=== PATIENT | female | born 1945 | race Caucasian/White ===

== ENCOUNTER 2018-12-19 10:54 | Outpatient (REF) | payer MEDICARE, MEDICAID, SELFPAY | END 2018-12-19 11:14 | LOC: NCHCN 10:54 | PROVIDERS: PCP Nurse Practitioner Family; Visit Provider Nurse Practitioner Family | DX: I10 Essential (primary) hypertension (principal); R25.1 Tremor, unspecified | CPT/HCPCS: 82043; 82570 ==

== ENCOUNTER 2020-06-12 02:28 | Outpatient (CLI) | payer MEDICARE, MEDICAID, SELFPAY ==
[2020-06-12] MEDS: Normal Saline Flush 10 ML SYR IVP (09:04)
[2020-06-12] MEDS: Normal Saline 500 ML 30 ML IV (09:04)
[2020-06-12 09:07] VITALS: BP 117/61; BP 128/63; PULSE 73; PULSE 75; RESP 16; RESP 18; TEMP 36.5; TEMP 37.2; O2SAT 94; O2SAT 95
[2020-06-12 09:30] VITALS: BP 126/62; PULSE 74; RESP 20; TEMP 36.7; O2SAT 94
[2020-06-12 10:00] VITALS: BP 122/64; PULSE 78; RESP 20; TEMP 36.7; O2SAT 94
[2020-06-12 10:30] VITALS: BP 120/66; PULSE 80; RESP 20; TEMP 36.8; O2SAT 95
== END 2020-06-12 02:29 | disposition home or self-care (01) ==
PROVIDERS: PCP Nurse Practitioner Family; Visit Provider Family Medicine
DX: U07.1 COVID-19 (principal)
CPT/HCPCS: 96365

== ENCOUNTER 2021-03-04 15:27 | Outpatient (REF) | payer MEDICARE, MEDICAID, SELFPAY ==
[2021-03-04 16:03] LABS: Abs Immature Grans 0.02 10^3/uL (0.0-0.06); Absolute Basophil Count 0.04 10^3/uL (0.0-0.2); Absolute Eosinophil Count 0.25 10^3/uL (0.0-0.7); Absolute Lymphocyte Count 0.75 10^3/uL (1.2-3.4); Absolute Monocyte Count 1.02 10^3/uL (0.1-0.8); Absolute Neutrophil Count 3.67 10^3/uL (1.2-6.7); Basophils % 0.7; Eosinophils % 4.3; HCT 28.7 % (36.0-46.0); HGB 8.6 g/dL (11.2-15.7); Immature Grans % 0.3; MCH 27.8 pg (27.0-33.0); MCV 92.9 fL (80-95); MPV 10.5 fL (8.0-11.0); Monocytes % 17.7; Nucleated RBC 0 %; Platelet Count 500 10^3/uL (130-400); RBC 3.09 10^6/uL (3.93-5.22); RDW-SD 54.8 fL; WBC 5.75 10^3/uL (4.4-10.8)
[2021-03-04 17:30] LABS: BUN 45 mg/dL (7-18); Calcium 8.9 mg/dL (8.5-10.1); Estimated GFR 7.13 (mL/min/1.73m2); Glucose 78 mg/dL (74-106); PHOSPHORUS 5.1 mg/dL (2.6-4.7)
[2021-03-04 17:32] LABS: CREATININE 5.8 mg/dL (0.55-1.02)
[2021-03-04 23:52] LABS: ALT 10 U/L (14-59); AST 13 U/L (15-37); Albumin 2.2 g/dL (3.4-5.0); Alkaline Phosphatase 93 U/L (46-116); Anion Gap 7.4 mmol/L (3-11); Bilirubin, Total 0.2 mg/dL (0.2-1.0); CO2 24.6 mmol/L (21.0-32.0); Chloride 102 mmol/L (98-107); Magnesium 1.5 mg/dL (1.8-2.4); Sodium 134 mmol/L (136-145); TSH (W/Ref FT4) 3.72 uIU/mL (0.36-3.74); Total Protein 4.6 g/dL (6.4-8.2)
[2021-03-05 01:48] LABS: COVID-19 RT-PCR UVMMC Result Negative (Negative)
== END 2021-03-04 15:28 | disposition home or self-care (01) ==
LOC: NCHCN 15:27
PROVIDERS: PCP Nurse Practitioner Family; Visit Provider Nurse Practitioner Family
DX: E11.9 Type 2 diabetes mellitus without complications (principal); I10 Essential (primary) hypertension; D50.9 Iron deficiency anemia, unspecified; R60.0 Localized edema; E83.39 Other disorders of phosphorus metabolism; E05.00 Thyrotoxicosis with diffuse goiter without thyrotoxic crisis or storm; N18.4 Chronic kidney disease, stage 4 (severe); J06.9 Acute upper respiratory infection, unspecified; Z20.822 Contact with and (suspected) exposure to COVID-19
CPT/HCPCS: 80053; U0003; U0005; 83735; 84100; 84443; 85025

== ENCOUNTER 2021-04-14 15:31 | Outpatient (REF) | payer MEDICARE, MEDICAID, SELFPAY ==
[2021-04-14 20:27] LABS: Anion Gap 8.8 mmol/L (3-11); BUN 61 mg/dL (7-18); CO2 20.2 mmol/L (21.0-32.0); Calcium 8.6 mg/dL (8.5-10.1); Chloride 107 mmol/L (98-107); Estimated GFR 6.03 (mL/min/1.73m2); Glucose 127 mg/dL (74-106); Potassium 5.4 mmol/L (3.5-5.1); Sodium 136 mmol/L (136-145)
[2021-04-14 20:41] LABS: Prothrombin Time 77.8 sec (9.3-11.0)
[2021-04-14 20:42] LABS: INR 8.2 (0.9-1.1)
[2021-04-14 20:57] LABS: CREATININE 6.7 mg/dL (0.55-1.02)
== END 2021-04-14 15:32 | disposition home or self-care (01) ==
LOC: NCHCN 15:31
PROVIDERS: PCP Nurse Practitioner Family; Visit Provider Nurse Practitioner Family
DX: I10 Essential (primary) hypertension (principal); I25.2 Old myocardial infarction; R60.9 Edema, unspecified; G45.9 Transient cerebral ischemic attack, unspecified
CPT/HCPCS: 80048; 85610

== ENCOUNTER 2021-04-21 15:54 | Outpatient (REF) | payer MEDICARE, MEDICAID, SELFPAY ==
[2021-04-21 21:19] LABS: Anion Gap 11.3 mmol/L (3-11); BUN 66 mg/dL (7-18); CO2 18.7 mmol/L (21.0-32.0); Calcium 8.4 mg/dL (8.5-10.1); Chloride 105 mmol/L (98-107); Estimated GFR 6.25 (mL/min/1.73m2); Glucose 100 mg/dL (74-106); Potassium 5.1 mmol/L (3.5-5.1); Sodium 135 mmol/L (136-145)
[2021-04-21 22:12] LABS: CREATININE 6.5 mg/dL (0.55-1.02)
== END 2021-04-21 15:55 | disposition home or self-care (01) ==
LOC: NCHCN 15:54
PROVIDERS: PCP Nurse Practitioner Family; Visit Provider Nurse Practitioner Family
DX: E87.5 Hyperkalemia (principal)
CPT/HCPCS: 80048; 85027

== ENCOUNTER 2021-04-24 11:23 | Outpatient (REF) | payer MEDICARE, MEDICAID, SELFPAY ==
[2021-04-24 15:23] LABS: Prothrombin Time 49.3 sec (9.3-11.0)
[2021-04-24 15:51] LABS: INR 5.1 (0.9-1.1)
== END 2021-04-24 11:24 | disposition home or self-care (01) ==
LOC: NCHCN 11:23
PROVIDERS: PCP Nurse Practitioner Family; Visit Provider Internal Medicine
DX: G45.9 Transient cerebral ischemic attack, unspecified (principal); Z79.01 Long term (current) use of anticoagulants
CPT/HCPCS: 85610

== ENCOUNTER 2021-05-02 10:11 | Outpatient (REF) | payer MEDICARE, MEDICAID, SELFPAY ==
[2021-05-02 14:21] LABS: HCT 22.3 % (36.0-46.0); MCH 28.5 pg (27.0-33.0); MCHC 30.5 % (32.0-36.0); MCV 93.3 fL (80-95); Platelet Count 574 10^3/uL (130-400); RBC 2.39 10^6/uL (3.93-5.22); RDW 17.7 % (11.7-14.6); RDW-SD 60.9 fL; WBC 6.42 10^3/uL (4.4-10.8)
[2021-05-02 14:30] LABS: HGB 6.8 g/dL (11.2-15.7)
[2021-05-02 14:34] LABS: Anion Gap 11.9 mmol/L (3-11); BUN 72 mg/dL (7-18); CO2 17.1 mmol/L (21.0-32.0); Chloride 103 mmol/L (98-107); Estimated GFR 5.74 (mL/min/1.73m2); Glucose 192 mg/dL (74-106); Potassium 5.4 mmol/L (3.5-5.1); Sodium 132 mmol/L (136-145)
[2021-05-02 14:56] LABS: INR 1.9 (0.9-1.1); Prothrombin Time 18.9 sec (9.3-11.0)
== END 2021-05-02 10:12 | disposition home or self-care (01) ==
LOC: NCHCN 10:11
PROVIDERS: PCP Nurse Practitioner Family; Visit Provider Nurse Practitioner Family
DX: N18.6 End stage renal disease (principal); E87.5 Hyperkalemia; Z79.01 Long term (current) use of anticoagulants; D63.1 Anemia in chronic kidney disease
CPT/HCPCS: 80048; 85027; 85610

== ENCOUNTER 2021-05-05 12:19 | Outpatient (REF) | payer MEDICARE, MEDICAID, SELFPAY ==
[2021-05-05 14:53] LABS: Abs Immature Grans 0.02 10^3/uL (0.0-0.06); Absolute Basophil Count 0.04 10^3/uL (0.0-0.2); Absolute Eosinophil Count 0.41 10^3/uL (0.0-0.7); Absolute Lymphocyte Count 0.84 10^3/uL (1.2-3.4); Absolute Monocyte Count 1.31 10^3/uL (0.1-0.8); Absolute Neutrophil Count 3.44 10^3/uL (1.2-6.7); Basophils % 0.7; Eosinophils % 6.8; HCT 23.4 % (36.0-46.0); Immature Grans % 0.3; Lymphocytes % 13.9; MCH 27.7 pg (27.0-33.0); MCHC 29.9 % (32.0-36.0); MCV 92.5 fL (80-95); Monocytes % 21.6; Neutrophils % 56.7; Nucleated RBC 0 %; Platelet Count 622 10^3/uL (130-400); RBC 2.53 10^6/uL (3.93-5.22); RDW 17.9 % (11.7-14.6); RDW-SD 61.1 fL; WBC 6.06 10^3/uL (4.4-10.8)
[2021-05-05 15:18] LABS: Iron 68 ug/dL (50-170); Total Iron Binding Capacity 151 ug/dL (250-450); Transferrin Sat 45 % (15-50)
[2021-05-05 15:22] LABS: ALT 9 U/L (14-59); AST 10 U/L (15-37); Alkaline Phosphatase 95 U/L (46-116); Anion Gap 11.1 mmol/L (3-11); BUN 75 mg/dL (7-18); Bilirubin, Total 0.3 mg/dL (0.2-1.0); CO2 18.9 mmol/L (21.0-32.0); Calcium 8.2 mg/dL (8.5-10.1); Chloride 105 mmol/L (98-107); Estimated GFR 5.47 (mL/min/1.73m2); Ferritin 446 ng/mL (8-252); Glucose 115 mg/dL (74-106); Potassium 5.6 mmol/L (3.5-5.1); Sodium 135 mmol/L (136-145); Total Protein 4.6 g/dL (6.4-8.2)
[2021-05-05 16:28] LABS: CREATININE 7.3 mg/dL (0.55-1.02)
== END 2021-05-05 12:20 | disposition home or self-care (01) ==
LOC: NCHCN 12:19
PROVIDERS: PCP Nurse Practitioner Family; Visit Provider Nurse Practitioner Family
DX: N18.6 End stage renal disease (principal); D50.9 Iron deficiency anemia, unspecified
CPT/HCPCS: 80053; 82728; 83540; 83550; 85025